=== PATIENT | male | born 1995 | race Hispanic/Latino ===

== ENCOUNTER 2019-09-16 23:49 | Emergency (ER) | payer SELFPAY ==
[2019-09-17] MEDS ORDERED: LIDOCAINE 1% W/EPI 1:100,000 MDV 20 ML VIAL ONE (00:06)
[2019-09-17] MEDS ORDERED: CEFAZOLIN/SWI 1gm 1 GM/10 ML SYR ONE (00:21)
[2019-09-17 00:32] LABS: Absolute Lymphocytes (CBC) 2.9 K/uL (0.7-4.9); Basophils % 0.5 % (0-1.3); Hematocrit 40.3 % (39.6-49.0); Lymphocytes % 42.8 % (15.3-44.8); MPV 9.1 fL (7.6-11.3); RBC Red Blood Cell Count 4.49 M/uL (4.33-5.43)
[2019-09-17 00:35] LABS: Protime INR 0.95
[2019-09-17 00:51] LABS: ALT/SGPT 23 U/L (12-78); AST/SGOT 18 U/L (15-37); Albumin 3.7 g/dL (3.4-5.0); Alkaline Phosphatase 85 U/L (45-117); BUN Blood Urea Nitrogen 12 mg/dL (7-18); Bicarbonate 28 mmol/L (21-32); Bilirubin Direct < 0.1 mg/dL (0-0.2); Bilirubin Total 0.2 mg/dL (0.2-1.0); Glucose Level 98 mg/dL (74-106); Potassium 4.2 mmol/L (3.5-5.1); Protein, Total 6.9 g/dL (6.4-8.2); Sodium Level 140 mmol/L (136-145)
--- NOTE | 2019-09-17 01:27 | ER ---
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 States, "I know it was just because of the K2 that I did that." Pt denies any thoughts of wanting to hurt himself or anyone else at this time. Transition of care: patient was not received from another setting of care. Onset of symptoms was September 16, 2019. Risk Assessment: Do you want to hurt yourself or someone else? Patient reports no desire to harm self or others. Initial Sepsis Screen: Does the patient meet any 2 criteria? No. Patient's initial sepsis screen is negative. Does the patient have a suspected source of infection? Yes: Skin breakdown/wound. Care prior to arrival: None. 23:54 Method Of Arrival: EMS: [facility] aa1 23:54 Acuity: ROSALBA 2 aa1 Triage Assessment: 23:54 General: Appears in no apparent distress. comfortable, Behavior is calm, cooperative, aa1 appropriate for age. Historical: - Allergies: 09/17 00:04 No Known Allergies; aa1 - Home Meds: 00:04 None [Active]; aa1 - PMHx: 00:04 None; aa1 - PSHx: 00:04 None; aa1 - Immunization history:: Last tetanus immunization: up to date. - Social history:: Smoking status: Patient uses tobacco products, smokes one-half pack cigarettes per day, Patient uses synthetic marijuana. - Ebola Screening: : No symptoms or risks identified at this time. - Family history:: not pertinent. Screenin:13 Abuse screen: Denies threats or abuse. Denies injuries from another. Nutritional ak1 screening: No deficits noted. Tuberculosis screening: No symptoms or risk factors identified. Fall Risk None identified. Assessment: 00:08 General: Appears in no apparent distress. comfortable, Behavior is cooperative. Pain: ak1 Denies pain. Neuro: Level of Consciousness is awake, alert, obeys commands, Oriented to person, place, time, situation, Appropriate for age. Cardiovascular: Heart tones S1 S2. Respiratory: Airway is patent. GI: No signs and/or symptoms were reported involving the gastrointestinal system. : No signs and/or symptoms were reported regarding the genitourinary system. EENT: Throat laceration to right side of throat. . Derm: Wound noted right aspect of thyroid and right sternocleidomastoid. Musculoskeletal: No signs and/or symptoms reported regarding the musculoskeletal system. 00:37 Reassessment: provider at bedside suturing laceration. jd3 Vital Signs: 09/16 23:54 BP 125 / 86; Pulse 60; Resp 16; Temp 97.5; Pulse Ox 100% on R/A; Weight 77.11 kg; aa1 Height 5 ft. 7 in. (170.18 cm); Pain 6/10; 09/17 01:42 BP 127 / 73; Pulse 72; Resp 18; Temp 98; Pulse Ox 100% on R/A; ak1 09/16 23:54 Body Mass Index 26.63 (77.11 kg, 170.18 cm) aa1 ED Course: 09/16 23:51 Patient arrived in ED. jd3 23:52 Jon Ward MD is Attending Physician. phong 23:54 Arm band placed on right wrist. aa1 09/17 00:02 Triage completed. aa1 00:08 America Huffman, RN is Primary Nurse. ak1 00:10 Inserted saline lock: 20 gauge in left antecubital area, using aseptic technique. Blood rr5 collected. 00:13 Patient has correct armband on for positive identification. Bed in low position. Call ak1 light in reach. Side rails up X 1. Side rails up X2. Pulse ox on. NIBP on. Door closed. 00:22 Assist provider with laceration repair on right sternocleidomastoid and right aspect of ak1 thyroid that was between 2.6 to 7.5 cm Set up tray. 00:35 Radiology exam delayed due to lab results not completed at this time. (BUN/Creatinine). kw1 00:51 Radiology exam delayed due to lab results not completed at this time. (BUN/Creatinine). kw1 00:57 Radiology exam delayed due to Dr. Ward is suturing patient at this time. kw1 01:42 IV discontinued, intact, bleeding controlled, No redness/swelling at site. Pressure ak1 dressing applied. Administered Medications: 00:15 Not Given (Physician Discretion): Tetanus-Diphtheria Toxoid Adult 0.5 ml IM once jd3 00:22 Drug: Ancef 1 grams Route: IVPB; Site: left antecubital; ak1 01:30 Follow up: IV Status: Completed infusion; IV Intake: 10ml ak1 00:22 Drug: Lidocaine-Epinephrine -1%: (1:100,000) 20 ml {Note: placed at bedside for ERP.} ak1 Volume: 20 ml; Route: Infiltration; :42 Drug: KeFLEX 500 mg Route: PO; ak1 01:42 Follow up: Response: No adverse reaction ak1 Intake: 01:30 IV: 10ml; Total: 10ml. ak1 Outcome: 01:27 Discharge ordered by MD. darling 01:42 Discharged to home ambulatory. ak1 01:42 Condition: improved 01:42 Discharge instructions given to patient, Instructed on discharge instructions, follow up and referral plans. medication usage, Demonstrated understanding of instructions, follow-up care, medications, Prescriptions given X 1. 01:42 Instructed on wound care, Demonstrated understanding of 01:43 Patient left the ED. ak1 Signatures: Reyna Caldwell, RN RN rachel1 Jon Ward MD MD cha Krenek, Amber RN RN ak1 Fili Rajan RN RN jd3 Wilhelm, Kimberly kw1 Gavin Coburn RN RN rr5
--- NOTE | 2019-09-17 01:28 | EDPHYS ---
Physician Documentation [facility] Name: Bradley Del Real Age: 24 yrs Sex: Male : 1995 Arrival Date: 09/16/2019 Time: 23:51 Bed 2 Private MD: ED Physician Jon Ward HPI: 09/17 00:08 This 24 yrs old Male presents to ER via EMS with complaints of depressed and phong angry, laceration to neck. 00:08 The patient has a laceration related to: self inflicted. The laceration(s) is(are) phong located on the right jaw. Onset: The symptoms/episode began/occurred just prior to arrival. Associated signs and symptoms: The patient has no apparent associated signs or symptoms. The patient has not experienced similar symptoms in the past. Historical: - Allergies: 00:04 No Known Allergies; aa1 - Home Meds: 00:04 None [Active]; aa1 - PMHx: 00:04 None; aa1 - PSHx: 00:04 None; aa1 - Immunization history:: Last tetanus immunization: up to date. - Social history:: Smoking status: Patient uses tobacco products, smokes one-half pack cigarettes per day, Patient uses synthetic marijuana. - Ebola Screening: : No symptoms or risks identified at this time. - Family history:: not pertinent. ROS: 00:10 Constitutional: Negative for fever, chills, and weight loss, Eyes: Negative for injury, phong pain, redness, and discharge, ENT: Negative for injury, pain, and discharge, Cardiovascular: Negative for chest pain, palpitations, and edema, Respiratory: Negative for shortness of breath, cough, wheezing, and pleuritic chest pain, Abdomen/GI: Negative for abdominal pain, nausea, vomiting, diarrhea, and constipation, Back: Negative for injury and pain, : Negative for injury, bleeding, discharge, and swelling, MS/Extremity: Negative for injury and deformity, Skin: Negative for injury, rash, and discoloration, Neuro: Negative for headache, weakness, numbness, tingling, and seizure, Psych: Negative for depression, anxiety, suicide ideation, homicidal ideation, and hallucinations, Allergy/Immunology: Negative for hives, rash, and allergies, Endocrine: Negative for neck swelling, polydipsia, polyuria, polyphagia, and marked weight changes, Hematologic/Lymphatic: Negative for swollen nodes, abnormal bleeding, and unusual bruising. 00:10 Neck: Positive for injury or acute deformity, pain with movement, of the right jaw. Exam: 00:10 Constitutional: This is a well developed, well nourished patient who is awake, alert, phong and in no acute distress. Head/Face: Normocephalic, atraumatic. Eyes: Pupils equal round and reactive to light, extra-ocular motions intact. Lids and lashes normal. Conjunctiva and sclera are non-icteric and not injected. Cornea within normal limits. Periorbital areas with no swelling, redness, or edema. ENT: Nares patent. No nasal discharge, no septal abnormalities noted. Tympanic membranes are normal and external auditory canals are clear. Oropharynx with no redness, swelling, or masses, exudates, or evidence of obstruction, uvula midline. Mucous membranes moist. Chest/axilla: Normal chest wall appearance and motion. Nontender with no deformity. No lesions are appreciated. Cardiovascular: Regular rate and rhythm with a normal S1 and S2. No gallops, murmurs, or rubs. Normal PMI, no JVD. No pulse deficits. Respiratory: Lungs have equal breath sounds bilaterally, clear to auscultation and percussion. No rales, rhonchi or wheezes noted. No increased work of breathing, no retractions or nasal flaring. Abdomen/GI: Soft, non-tender, with normal bowel sounds. No distension or tympany. No guarding or rebound. No evidence of tenderness throughout. Back: No spinal tenderness. No costovertebral tenderness. Full range of motion. Male : Normal genitalia with no discharge or lesions. Skin: Warm, dry with normal turgor. Normal color with no rashes, no lesions, and no evidence of cellulitis. MS/ Extremity: Pulses equal, no cyanosis. Neurovascular intact. Full, normal range of motion. Neuro: Awake and alert, GCS 15, oriented to person, place, time, and situation. Cranial nerves II-XII grossly intact. Motor strength 5/5 in all extremities. Sensory grossly intact. Cerebellar exam normal. Normal gait. Psych: Awake, alert, with orientation to person, place and time. Behavior, mood, and affect are within normal limits. 00:10 Neck: C-spine: appears grossly normal, no acute changes, Thyroid: appears normal, no acute changes, Trachea: is midline with no obvious abnormalities, no acute changes, ROM/movement: is normal, no acute changes. Vital Signs: 09/16 23:54 BP 125 / 86; Pulse 60; Resp 16; Temp 97.5; Pulse Ox 100% on R/A; Weight 77.11 kg; aa1 Height 5 ft. 7 in. (170.18 cm); Pain 6/10; 09/17 01:42 BP 127 / 73; Pulse 72; Resp 18; Temp 98; Pulse Ox 100% on R/A; ak1 09/16 23:54 Body Mass Index 26.63 (77.11 kg, 170.18 cm) aa1 Laceration: 01:28 Wound Repair of 12cm ( 4.7in ) subcutaneous laceration to neck and right phong sternocleidomastoid. Irregularly shaped.. Skin/tissue flap noted.. Minimal bleeding noted.. Distal neuro/vascular/tendon intact. Anesthesia: Local anesthetic administered with 20 mls of 1% lidocaine w/ Epi. Wound prep: Moderate cleansing by me. Skin closed with 13 5-0 Prolene using vertical mattress sutures and sterile technique. Dressed with Neosporin. Patient tolerated well. MDM: 09/16 23:52 Patient medically screened. [facility] 09/17 00:11 Data reviewed: vital signs, nurses notes, lab test result(s), EKG, radiologic studies, phong doppler. 09/17 00:08 Order name: Acetaminophen; Complete Time: [facility] 09/17 00:08 Order name: Basic Metabolic Panel; Complete Time: [facility] 09/17 00:08 Order name: CBC with Diff; Complete Time: [facility] 09/17 00:08 Order name: ETOH Level; Complete Time: [facility] 09/17 00:08 Order name: Hepatic Function; Complete Time: [facility] 09/17 00:08 Order name: PT-INR; Complete Time: [facility] 09/17 00:08 Order name: Ptt, Activated; Complete Time: [facility] 09/17 00:08 Order name: Salicylate; Complete Time: [facility] 09/17 00:08 Order name: EKG; Complete Time: 00:09 [facility] 09/17 00:08 Order name: EKG - Nurse/Tech; Complete Time: 00:21 [facility] 09/17 00:08 Order name: IV Saline Lock; Complete Time: 00:13 [facility] 09/17 00:08 Order name: Labs collected and sent; Complete Time: 00:13 [facility] 09/17 00:08 Order name: Prolene, Sutures; Complete Time: 01:26 [facility] 09/17 00:08 Order name: Dressing - Wound; Complete Time: 01:40 [facility] 09/17 00:08 Order name: Gloves, Sterile; Complete Time: 00:14 [facility] 09/17 00:08 Order name: Setup Suture Tray; Complete Time: 00:13 [facility] Administered Medications: 00:15 Not Given (Physician Discretion): Tetanus-Diphtheria Toxoid Adult 0.5 ml IM once jd3 00:22 Drug: Ancef 1 grams Route: IVPB; Site: left antecubital; ak1 01:30 Follow up: IV Status: Completed infusion; IV Intake: 10ml ak1 00:22 Drug: Lidocaine-Epinephrine -1%: (1:100,000) 20 ml {Note: placed at bedside for ERP.} ak1 Volume: 20 ml; Route: Infiltration; 01:42 Drug: KeFLEX 500 mg Route: PO; ak1 01:42 Follow up: Response: No adverse reaction ak1 Disposition: 09/17/19 01:27 Discharged to Home. Impression: Laceration without foreign body of other specified part of neck, Abuse of non-psychoactive substances - not suicidal. - Condition is Stable. - Discharge Instructions: Laceration Care, Adult, Substance Use Disorder, Laceration Care, Adult, [id number]. - Prescriptions for Keflex 500 mg Oral Capsule - take 1 capsule by ORAL route every 6 hours for 7 days; 28 capsule. - Medication Reconciliation Form, Thank You Letter, Antibiotic Education, Prescription Opioid Use form. - Follow up: Private Physician; When: 5 - 6 days; Reason: Recheck today's complaints, Continuance of care, Re-evaluation by your physician. - Problem is new. - Symptoms have improved. Signatures: Dispatcher [employer] EDMS Reyna Caldwell RN RN rachel1 Jon Ward MD MD cha Krenek, Amber RN RN ak1 Fili Rajan RN jd3 Corrections: (The following items were deleted from the chart) 01:32 00:10 Neck Angio+CT.RAD.BRZ ordered. [facility] EDMS 01:43 01:27 09/17/2019 01:27 Discharged to Home. Impression: Laceration without foreign body ak1 of other specified part of neck; Abuse of non-psychoactive substances - not suicidal. Condition is Stable. Forms are Medication Reconciliation Form, Thank You Letter, Antibiotic Education, Prescription Opioid Use. Follow up: Private Physician; When: 5 - 6 days; Reason: Recheck today's complaints, Continuance of care, Re-evaluation by your physician. Problem is new. Symptoms have improved. phong
[2019-09-17] MEDS ORDERED: CEPHALEXIN 250 MG CAP ONE (01:36)
[2019-09-17 03:43] VITALS: O2SAT 100
[2019-09-17 03:45] VITALS: BP 127/73; TEMP 98
--- NOTE | 2019-09-18 20:49 | EKG ---
Test Date: 2019-09-17 Test Time: 00:26:35 Brewing Director: KESHAWN MEASUREMENT RESULTS: Intervals: Rate: 46 MA: 148 QRSD: 144 QT: 438 QTc: 383 [place]: P: 15 MA: 148 QRS: 112 T: 49 INTERPRETIVE STATEMENTS: Sinus bradycardia with marked sinus arrhythmia Right bundle branch block Abnormal ECG No previous ECG available for comparison Electronically Signed On 09-18-19 20:46:56 [employer] by Adalberto Varghese
== END 2019-09-17 01:43 | disposition home or self-care (01) ==
LOC: ER 23:49
PROC: 0JQ40ZZ Repair Right Neck Subcutaneous Tissue and Fascia, Open Approach (ICD-10-PCS; principal; 2019-09-17)
DX: S11.91XA Laceration without foreign body of unspecified part of neck, initial encounter (principal); F55.8 Abuse of other non-psychoactive substances; X78.8XXA Intentional self-harm by other sharp object, initial encounter; Y93.89 Activity, other specified; Y92.9 Unspecified place or not applicable; F17.210 Nicotine dependence, cigarettes, uncomplicated
CPT/HCPCS: 36415; 80048; 80076; 80320; 80329; 85025; 85610; 85730; 93005; 96365; 99284; J0690

== ENCOUNTER 2019-11-19 16:38 | Emergency (ER) | payer SELFPAY ==
[2019-11-19 18:26] LABS: Urine Blood NEGATIVE (NEG); Urine Glucose NEGATIVE (NEG); Urine Protein 1+ (NEG); Urine pH 8.5 (5.0-7.0)
[2019-11-19 18:39] LABS: Absolute Lymphocytes (CBC) 1.4 K/uL (0.7-4.9); Basophils % 0.4 % (0-1.3); Hematocrit 43.2 % (39.6-49.0); Lymphocytes % 13.9 % (15.3-44.8); MPV 9.2 fL (7.6-11.3)
[2019-11-19 19:05] LABS: ALT/SGPT 18 U/L (12-78); AST/SGOT 19 U/L (15-37); Alkaline Phosphatase 68 U/L (45-117); BUN Blood Urea Nitrogen 7 mg/dL (7-18); Bicarbonate 30 mmol/L (21-32); Bilirubin Direct 0.2 mg/dL (0-0.2); Bilirubin Total 0.5 mg/dL (0.2-1.0); Glucose Level 86 mg/dL (74-106); Potassium 3.7 mmol/L (3.5-5.1); Protein, Total 7.4 g/dL (6.4-8.2); Sodium Level 141 mmol/L (136-145)
[2019-11-19 19:13] LABS: Barbiturates NEGATIVE (NEGATIVE); Benzodiazepines NEGATIVE (NEGATIVE); Cocaine NEGATIVE (NEGATIVE); METHAMPHETAM POSITIVE (NEGATIVE); Methadone NEGATIVE (NEGATIVE); Opiates NEGATIVE (NEGATIVE); Phencyclidine NEGATIVE (NEGATIVE); THC Cannibis POSITIVE (NEGATIVE)
[2019-11-19] MEDS ORDERED: NICOTINE 21 MG/PAT TD ONE (21:17)
--- NOTE | 2019-11-20 08:54 | EKG ---
Test Date: 2019-11-19 Test Time: 18:22:54 Medical Billing Representative: FREDO MEASUREMENT RESULTS: Intervals: Rate: 65 OR: 148 QRSD: 136 QT: 408 QTc: [address]: P: 53 OR: 148 QRS: 109 T: 47 INTERPRETIVE STATEMENTS: Sinus rhythm with marked sinus arrhythmia Right bundle branch block Abnormal ECG Compared to ECG 09/17/2019 00:26:35 Sinus bradycardia no longer present Electronically Signed On 11-20-19 08:53:13 [employer]OWER [employer] INST[employer] by Nikunj Gilman
[2019-11-20] MEDS ORDERED: LORAZEPAM 1 MG TABLET ONE (20:32)
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
[2019-11-21 06:21] VITALS: BP 131/70; TEMP 98.9; O2SAT 100
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
== END 2019-11-21 05:48 | disposition home or self-care (01) ==
LOC: ER 16:38
DX: F33.3 Major depressive disorder, recurrent, severe with psychotic symptoms (principal); F12.10 Cannabis abuse, uncomplicated; F55.8 Abuse of other non-psychoactive substances; F17.210 Nicotine dependence, cigarettes, uncomplicated
CPT/HCPCS: 36415; 80048; 80076; 80307; 80320; 80329; 81003; 85025; 85610; 85730; 93005; 99285

== ENCOUNTER 2024-05-05 13:38 | Emergency (ER) | payer SELFPAY ==
[2024-05-05] MEDS ORDERED: IBUPROFEN 200 MG TAB PO ONE (14:59)
[2024-05-05] MEDS ORDERED: AMOX/K CLAV 875 MG TAB ONE (14:59)
[2024-05-05] MEDS ORDERED: HYDROCODONE/APAP 7.5/325 MG TAB ONE (15:00)
--- NOTE | 2024-05-05 15:07 | ER ---
Nurse's Notes [facility] Name: Bradley Del Real Age: 28 yrs Sex: Male : 1995 Arrival Date: 05/05/2024 Time: 13:38 Bed 10 Private MD: Diagnosis: Disorder of teeth and supporting structures, unspecified Presentation: 05/05 14:30 Chief complaint: Patient states: Left lower jaw tooth pain for 2 days. Coronavirus ll1 screen: Client denies travel out of the [place] in the last 14 days. At this time, the client does not indicate any symptoms associated with coronavirus-19. Ebola Screen: Patient denies travel to an Ebola-affected area in the 21 days before illness onset. Initial Sepsis Screen: Does the patient meet any 2 criteria? No. Patient's initial sepsis screen is negative. Does the patient have a suspected source of infection? No. Patient's initial sepsis screen is negative. Risk Assessment: Do you want to hurt yourself or someone else? Patient reports no desire to harm self or others. Onset of symptoms was May 04, 2024. 14:30 Method Of Arrival: Ambulatory ll1 14:30 Acuity: ROSALBA 4 ll1 Triage Assessment: 14:30 General: Appears uncomfortable, Behavior is calm, cooperative, appropriate for age. ll1 Pain: Complains of pain in L lower jaw Quality of pain is described as aching, throbbing. EENT: Reports pain in left jaw. Historical: - Allergies: 14:30 No Known Allergies; ll1 - Home Meds: 14:30 None [Active]; ll1 - PMHx: 14:30 None; ll1 - PSHx: 14:30 None; ll1 - Immunization history:: Adult Immunizations up to date. - Infectious Disease History:: Denies. - Social history:: Smoking status: Patient reports the use of cigarette tobacco products, smokes one-half pack cigarettes per day. Screenin:00 [facility] ED Fall Risk Assessment (Adult) History of falling in the last 3 months, hb including since admission No falls in past 3 months (0 pts) Confusion or Disorientation No (0 pts) Intoxicated or Sedated No (0 pts) Impaired Gait No (0 pts) Mobility Assist Device Used No (0 pt) Altered Elimination No (0 pt) Score/Fall Risk Level 0 - 2 = Low Risk Oriented to surroundings, Maintained a safe environment, Educated pt \T\ family on fall prevention, incl call for assistance when getting out of bed. Abuse screen: Denies threats or abuse. Denies injuries from another. Nutritional screening: No deficits noted. Tuberculosis screening: No symptoms or risk factors identified. Assessment: 15:00 General: Appears in no apparent distress. uncomfortable, Behavior is calm, cooperative. hb Pain: Pain currently is 10 out of 10 on a pain scale. Neuro: Level of Consciousness is awake, alert, obeys commands, Oriented to person, place, time, situation. Cardiovascular: Patient's skin is warm and dry. Respiratory: Respiratory effort is even, unlabored, Respiratory pattern is regular, symmetrical. GI: No signs and/or symptoms were reported involving the gastrointestinal system. : No signs and/or symptoms were reported regarding the genitourinary system. EENT: Reports left lower molar pain. Derm: Skin is pink, warm \T\ dry. Musculoskeletal: No signs and/or symptoms reported regarding the musculoskeletal system. Vital Signs: 14:30 BP 150 / 93; Pulse 60; Resp 17; Temp 97.5; Pulse Ox 99% on R/A; Weight 102.06 kg; ll1 Height 5 ft. 7 in. ; Pain 10/10; 14:30 Body Mass Index 35.24 (102.06 kg, 170.18 cm) ll1 14:30 Pain Scale: Adult ll1 ED Course: 13:40 Patient arrived in ED. ra3 13:51 Jon Ward MD is Attending Physician. phong 13:51 Jon Sniha PA is PHCP. cp 14:31 Triage completed. ll1 14:31 Arm band placed on. ll1 15:00 Patient has correct armband on for positive identification. Provided Education on: hb medications, follow up. 15:00 No provider procedures requiring assistance completed. Patient did not have IV access hb during this emergency room visit. 15:02 Carol Kamara, RN is Primary Nurse. hb Administered Medications: 15:02 Drug: Ibuprofen PO 800 mg PO once Route: PO; hb 15:03 Drug: Hydrocodone-Acetaminophen PO (7.5 mg-325 mg) 1 tabs PO once; RASS on ADMIN: hb Combtv4, Very Agttd3, Agttd2, Rstlss1, AlertClm0, Drwsy-1, Lt Sdtn-2, Mod Sdtn-3, Dp Sdtn-4, UnArsble-5 Route: PO; 15:03 Drug: Amoxicillin-Clavulanate PO 875 mg PO once Route: PO; hb Medication: 15:00 VIS not applicable for this client. hb Outcome: 15:06 Discharge ordered by MD. cp 15:26 Discharged to home ambulatory, 15:26 Condition: stable 15:26 Discharge instructions given to patient, Instructed on discharge instructions, follow up and referral plans. medication usage, Demonstrated understanding of instructions, follow-up care, medications, Prescriptions given X 2, 15:27 Patient left the ED. hb Signatures: Jon Ward MD MD cha Page, Corey, PA Carol De La Cruz cp, RN RN Christopher Mcdowell RN RN ll1 Yoana Horner ra3
--- NOTE | 2024-05-05 15:07 | EDPHYS ---
Physician Documentation [facility] Name: Bradley Del Real Age: 28 yrs Sex: Male : 1995 Arrival Date: 05/05/2024 Time: 13:38 Bed 10 Private MD: ED Physician Jon Ward HPI: 05/05 14:33 This 28 yrs old Male presents to ER via Ambulatory with complaints of cp Toothache. 14:33 The patient presents with pain. The problem is located in the left jaw. Onset: The cp symptoms/episode began/occurred 2 day(s) ago. Duration: The symptoms are continuous, and are steadily getting worse. Associated signs and symptoms: Pertinent negatives: dysphagia, fever, vomiting. Severity of symptoms: in the emergency department the symptoms are actually worse, moderately. The patient has experienced similar episodes in the past, multiple times. Historical: - Allergies: 14:30 No Known Allergies; ll1 - Home Meds: 14:30 None [Active]; ll1 - PMHx: 14:30 None; ll1 - PSHx: 14:30 None; ll1 - Immunization history:: Adult Immunizations up to date. - Infectious Disease History:: Denies. - Social history:: Smoking status: Patient reports the use of cigarette tobacco products, smokes one-half pack cigarettes per day. ROS: 14:35 Eyes: Negative for injury, pain, redness, and discharge, cp 14:35 Constitutional: Negative for body aches, chills, fever, poor PO intake, 14:35 ENT: Positive for dental pain, Negative for ear pain, sore throat, difficulty swallowing, difficulty handling secretions, 14:35 Respiratory: Negative for cough, shortness of breath, wheezing, 14:35 Abdomen/GI: Negative for abdominal pain, vomiting, diarrhea, constipation, 14:35 Skin: Negative for rash, 14:35 Neuro: Negative for altered mental status, headache, 14:35 All other systems are negative, Exam: 14:40 Constitutional: The patient appears in no acute distress, alert, awake, non-toxic, well cp developed, well nourished, uncomfortable, 14:40 Head/Face: Normocephalic, atraumatic. cp 14:40 Eyes: Periorbital structures: appear normal, Conjunctiva: normal, no exudate, no injection, Sclera: no appreciated abnormality, Lids and lashes: appear normal, bilaterally, 14:40 ENT: External ear(s): are unremarkable, Ear canal(s): are normal, clear, TM's: are normal, Nose: is normal, Mouth: Lips: moist, Oral mucosa: pink and intact, moist, Posterior pharynx: Airway: no evidence of obstruction, patent, Dental exam: abscess, is not appreciated, dental caries, that is mild, diffusely, pain, specifically in the upper right third molar (#1) and left jaw, 14:40 Neck: ROM/movement: Meningeal signs: are not present, nuchal rigidity, is not appreciated, 14:40 Chest/axilla: Inspection: normal, 14:40 Cardiovascular: Rate: normal, 14:40 Respiratory: the patient does not display signs of respiratory distress, Respirations: normal, no use of accessory muscles, no retractions, 14:40 Abdomen/GI: Inspection: abdomen appears normal, Vital Signs: 14:30 BP 150 / 93; Pulse 60; Resp 17; Temp 97.5; Pulse Ox 99% on R/A; Weight 102.06 kg; ll1 Height 5 ft. 7 in. ; Pain 10/10; 14:30 Body Mass Index 35.24 (102.06 kg, 170.18 cm) ll1 14:30 Pain Scale: Adult ll1 MDM: 13:[address] [facility] 14:40 Differential diagnosis: dental caries, gingivitis, dental abscess, pericoronitis. 15:05 Data reviewed: vital signs, nurses notes, and as a result, I will discharge patient. 15:05 I considered the following discharge prescriptions or medication management in the emergency department Medications were administered in the Emergency Department. See MAR. Counseling: I had a detailed discussion with the patient and/or guardian regarding the historical points, exam findings, and any diagnostic results supporting the discharge/admit diagnosis, the need for outpatient follow up, for definitive care, a dentist. Response to treatment: the patient's symptoms have mildly improved after treatment, and as a result, I will discharge patient. Administered Medications: 15:02 Drug: Ibuprofen PO 800 mg PO once Route: PO; hb 15:03 Drug: Hydrocodone-Acetaminophen PO (7.5 mg-325 mg) 1 tabs PO once; RASS on ADMIN: hb Combtv4, Very Agttd3, Agttd2, Rstlss1, AlertClm0, Drwsy-1, Lt Sdtn-2, Mod Sdtn-3, Dp Sdtn-4, UnArsble-5 Route: PO; 15:03 Drug: Amoxicillin-Clavulanate PO 875 mg PO once Route: PO; hb Disposition Summary: 05/05/24 15:06 Discharge Ordered Notes: Location: Home cp Problem: new cp Symptoms: have improved cp Condition: Stable cp Diagnosis - Disorder of teeth and supporting structures, unspecified cp Followup: cp - With: Private Physician - When: 2 - 3 days - Reason: Recheck today's complaints Discharge Instructions: - Discharge Summary Sheet cp - Dental Pain cp Forms: - Medication Reconciliation Form cp - Antibiotic Education cp - Prescription Opioid Use cp - Patient Portal Instructions cp - Leadership Thank You Letter cp Prescriptions: - Amoxicillin 875 mg Oral Tablet - take 1 tablet ORAL route every 12 hours for 10 days; 20 tablet; Refills: 0, cp Product Selection Permitted - Anaprox DS 550 mg Oral Tablet - take 1 tablet ORAL route every 12 hours As needed; 20 tablet; Refills: 0, cp Product Selection Permitted Signatures: Jon Ward MD MD cha Page, Corey, PA PA cp Carol Kamara RN RN Christopher Thomas RN RN ll1 Corrections: (The following items were deleted from the chart) 05/06 13:49 13:44 ENT: Positive for dental pain, Negative for ear pain, sore throat, difficulty cp swallowing, difficulty handling secretions, cp 13:49 13:44 Respiratory: Negative for cough, shortness of breath, wheezing, cp cp 13:49 13:44 Abdomen/GI: Negative for abdominal pain, vomiting, diarrhea, constipation, cp cp 13:49 13:44 Constitutional: Negative for body aches, chills, fever, poor PO intake, cp cp 13:49 13:44 Eyes: Negative for injury, pain, redness, and discharge, cp cp 13:49 13:44 Neuro: Negative for altered mental status, headache, cp cp 13:49 13:44 Skin: Negative for rash, cp cp 13:49 13:44 All other systems are negative, cp cp
[2024-05-05 15:36] VITALS: BP 150/93; TEMP 97.5; O2SAT 99
== END 2024-05-05 15:27 | disposition home or self-care (01) ==
LOC: ER 13:38
DX: K08.89 Other specified disorders of teeth and supporting structures (principal)
CPT/HCPCS: 99283